=== PATIENT | female | born 1940 | race Asian ===

== ENCOUNTER 2018-07-04 19:42 | Emergency (ER) | payer MEDICARE, OTHER ==
[2018-07-04 23:12] LABS: ADD MAN DIFF? NO
[2018-07-04 23:13] LABS: WHITE BLOOD COUNT 6.5 10^3/ul (4.8-10.8)
[2018-07-04 23:13] LABS: BASOPHILS % 0.5 % (0.0-2.0); EOSINOPHILS # 0.1 10^3/ul (0.0-0.5); EOSINOPHILS % 1.2 % (0.0-7.0); HEMOGLOBIN 12.6 g/dl (12.0-16.0); LYMPHOCYTES # 2.7 10^3/ul (0.8-2.9); LYMPHOCYTES % 41.7 % (15.0-51.0); MEAN CORPUSCULAR HEMOGLOBIN 31.2 pg (29.0-33.0); MEAN CORPUSCULAR VOLUME 89.1 fl (82.0-101.0); MEAN PLATELET VOLUME 8.7 fl (7.4-10.4); MONOCYTE # 0.6 10^3/ul (0.3-0.9); MONOCYTES % 9.9 % (0.0-11.0); NEUTROPHILS % 46.4 % (39.0-77.0); PLATELET COUNT 166 10^3/UL (140-415); RED BLOOD COUNT 4.04 10^6/ul (4.20-5.40); RED CELL DISTRIBUTION WIDTH 12.5 % (11.5-14.5)
[2018-07-04] MEDS: morphine 2 MG INJ IV (23:13)
[2018-07-04] MEDS: SOD CHLORIDE 0.9% 500 ML IV (23:13)
[2018-07-04] MEDS: ONDANSETRON 4 MG INJ IV (23:13)
[2018-07-04 23:31] LABS: ANION GAP 11 (5-13); BLOOD UREA NITROGEN 11 mg/dl (7-20); CALCIUM 9.3 mg/dl (8.4-10.2); CARBON DIOXIDE 27 mmol/L (21-31); CHLORIDE 89 mmol/L (97-110); GLUCOSE 124 mg/dl (70-220); POTASSIUM 4.2 mmol/L (3.5-5.1); SODIUM 127 mmol/L (135-144)
[2018-07-04 23:32] LABS: INR 0.99; PROTIME 13.2 Sec (11.9-14.9)
[2018-07-04 23:33] LABS: PARTIAL THROMBOPLASTIN TIME 29.5 Sec (23.0-35.0)
[2018-07-04 23:42] LABS: TROPONIN-I < 0.012 ng/ml (0.000-0.120)
[2018-07-05] MEDS: SOD CHLORIDE 0.9% 100 ML (00:05)
[2018-07-05] MEDS: IOHEXOL 300MG/ML 150 ML BTL (00:05)
[2018-07-05] MEDS: ONDANSETRON 4 MG INJ IV (00:38)
[2018-07-05 01:14] LABS: URINE BLOOD (Dip) POC 1+ (NEGATIVE); URINE GLUCOSE (Dip) POC Negative (NEGATIVE); URINE KETONES (Dip) POC Negative (NEGATIVE); URINE LEUKOCYTE EST (Dip) POC 1+ (NEGATIVE); URINE NITRITE (Dip) POC Negative (NEGATIVE); URINE TOTAL PROTEIN POC Negative (NEGATIVE)
== END 2018-07-05 03:39 | disposition home or self-care (01) ==
LOC: E/R 07-05 03:39
DX: R51 Headache (principal); E11.9 Type 2 diabetes mellitus without complications; R42 Dizziness and giddiness; M79.602 Pain in left arm
CPT/HCPCS: 36415; 70450; 70496; 70498; 71045; 80048; 81003; 82962; 84484; 85025; 85610; 85730; 93005; 96361; 96374; 96375; 96376; 99285-25